=== PATIENT | male | born 1980 | race Two or more races ===

== ENCOUNTER 2021-01-28 11:58 | Emergency (ER) | payer OTHER, MEDICAID, SELFPAY ==
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
--- NOTE | ~2021-01-28 | CT_ITS ---
EXAMINATION: CT ANGIOGRAM NECK WITH CONTRAST CT ANGIOGRAM BRAIN WITH CONTRAST CLINICAL INFORMATION: Neck swelling and pain. Rule out left carotid dissection. COMPARISON: None. TECHNIQUE: Test bolus sequences followed by intravenous administration 70 mL of Omnipaque 350. Helical imaging was performed in the axial plane from the thoracic inlet to the skull vertex. Delayed postcontrast imaging of the head was also performed. The data was processed at the electromechanical technologist workstation for generation of MIP sequences. Angled MIPs and volume rendered reformatted images were also generated at an offline 3D workstation under concurrent supervision. Stenoses are assessed in accordance with NASCET criteria unless otherwise indicated. This CT examination was performed using dose optimization techniques as appropriate, variously including the following: *Automated exposure control *Adjustment of mA and/or kV according to patient size (this includes techniques or standardized protocols for targeted exams where dose is matched to indication/reason for exam; i.e. extremities or head) *Use of iterative reconstruction technique FINDINGS: BRAIN: [There is no intracranial hemorrhage, hydrocephalus, extra-axial surface collection, midline shift, or other herniation pattern. Villasenor to white matter differentiation is diffusely maintained without evidence of an evolved acute territorial infarct. The basilar cisterns are preserved. No significant soft tissue abnormality. No acute osseous abnormality. The paranasal sinuses and the mastoid air cells are well aerated.] CERVICAL SOFT TISSUES AND LUNG APICES: Imaged upper lungs are clear. Nonpathologic size criteria lymph nodes within the right and left neck. NECK CTA: [There is a classic 3 vessel configuration of the aortic arch. Proximal arch vessels are non-stenotic. The vertebral arteries are codominant. No significant ostial stenosis is visualized on either side. Both vertebral arteries are widely patent throughout their extracranial cervical course. Both common carotid arteries are normal in caliber. Patulous carotid bulbs bilaterally. There is mild beaded irregularity of the mid to distal right cervical ICA that could reflect underlying fibromuscular dysplasia. There is no evidence of acute arterial dissection. BRAIN CTA: [There is normal opacification of major intracranial arteries. There are -type engineering project manager bilaterally. No focal flow-limiting stenosis nor discrete proximal large artery occlusion. No aneurysm. Timing of the contrast bolus allows assessment of the major dural venous sinuses, which all opacify normally] CT/CT angio head neck IMPRESSION: - No acute intracranial findings. - Patulous carotid bulbs bilaterally. There is mild beaded irregularity of the mid to distal right cervical ICA that could reflect underlying fibromuscular dysplasia. There is no evidence of acute arterial dissection.
[2021-01-28 12:05] VITALS: BP 155/98; PULSE 73; RESP 16; O2SAT 97; BMI 24.7
[2021-01-28 12:08] VITALS: TEMP 36.9
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
[2021-01-28 15:33] VITALS: BP 120/76; PULSE 56; RESP 16; TEMP 36.6; O2SAT 98
[2021-01-28 17:15] LABS: MANUAL DIFF FLAG NO
[2021-01-28 17:16] LABS: Basophils Percent Auto 0.2 % (0-2); Eosinophils Absolute Auto 0.1 X10*3/uL (0.0-0.4); Hematocrit 42.9 % (42-52); Hemoglobin 13.6 g/dl (14.0-18.0); Imm Gran Abs Auto 0.01 X10*3/uL (0.00-0.03); Imm Gran Pct Auto 0.2 % (0.0-0.4); Lymphocytes Percent Auto 42.1 % (20-40); Mean Corpuscular HGB Conc 31.7 g/dl (31.0-36.0); Mean Corpuscular Hemoglobin 24.3 pg (27.0-33.0); Mean Corpuscular Volume 76.7 fL (80-98); Mean Platelet Volume 9.4 fL (9.4-12.4); Monocytes Absolute Auto 0.5 X10*3/uL (0.1-1.2); Monocytes Percent Auto 9.5 % (2-11); Neutrophils Absolute Auto 2.3 X10*3/uL (2.0-8.3); Platelet Count 228 X10*3/uL (160-400); Red Blood Count 5.59 X10*6/uL (4.60-5.80); Red Cell Distribution Width 14.4 % (11.0-16.0); White Blood Count 4.8 X10*3/uL (4.8-10.8)
[2021-01-28 17:41] LABS: Anion Gap 12 (12-20); Blood Urea Nitrogen 18 mg/dL (9-16); Carbon Dioxide 29 mmol/L (22-29); Chloride 102 mmol/L (96-108); Estimated Glomerular Filt Rate > 60; Glucose Random 90 mg/dL (60-115); Potassium 4.4 mmol/L (3.3-5.1); Sodium 139 mmol/L (135-145)
[2021-01-28] MEDS: iohexoL 350 MG/ML 100 ML INFUS..BTL IV (18:26)
== END 2021-01-28 19:22 | disposition home or self-care (01) ==
PROVIDERS: Nurse Practitioner Family; Emergency Provider Emergency Medicine Emergency Medical Services
DX: S16.1XXA Strain of muscle, fascia and tendon at neck level, initial encounter (principal); M54.5 Low back pain; M54.2 Cervicalgia; G44.309 Post-traumatic headache, unspecified, not intractable; V89.2XXA Person injured in unspecified motor-vehicle accident, traffic, initial encounter; Y93.9 Activity, unspecified; Y92.410 Unspecified street and highway as the place of occurrence of the external cause; Y99.9 Unspecified external cause status; Z79.899 Other long term (current) drug therapy
CPT/HCPCS: 36415; 70496; 70498; 72040; 72100; 80048; 85025; 96360; 99284; Q9967

== ENCOUNTER 2021-06-29 18:51 | Emergency (ER) | payer OTHER, SELFPAY ==
--- NOTE | ~2021-06-29 | CT_ITS ---
EXAMINATION: CT HEAD WITHOUT CONTRAST CLINICAL INFORMATION: Headache and blurry vision. COMPARISON: None TECHNIQUE: Contiguous axial imaging was performed from the skull base to vertex without intravenous administration of contrast. This CT examination was performed using dose optimization techniques as appropriate, variously including the following: *Automated exposure control *Adjustment of mA and/or kV according to patient size (this includes techniques or standardized protocols for targeted exams where dose is matched to indication/reason for exam; i.e. extremities or head) *Use of iterative reconstruction technique DLP: 648 mGy-cm FINDINGS: There is no evidence of acute intracranial hemorrhage or territorial infarction. No abnormal mass effect or midline shift is seen. Villasenor to white matter differentiation is well preserved. No extra-axial fluid collections are identified. The ventricles are normal in size. There is no abnormal attenuation within the brain parenchyma. The osseous structures and soft tissues are normal. The mastoid air cells and visualized portions of the paranasal sinuses are well aerated. CT/CT head/brain wo con IMPRESSION: No acute intracranial process
--- NOTE | ~2021-06-29 | XR_ITS ---
EXAMINATION: XR CHEST CLINICAL INFORMATION: SOB. COMPARISON: None TECHNIQUE: Frontal view of the chest was obtained. FINDINGS: No significant abnormality is noted involving the heart, lungs, mediastinum, bony thorax or soft tissues. XR/XR chest 1V IMPRESSION: Unremarkable chest exam.
[2021-06-29 20:41] VITALS: BP 153/87; PULSE 70; RESP 18; TEMP 36.4; O2SAT 100; BMI 25.4
[2021-06-29 21:14] VITALS: BP 136/99; PULSE 61; RESP 18; TEMP 36.9; O2SAT 99
[2021-06-29 21:16] LABS: Basophils Percent Auto 0.3 % (0-2); Eosinophils Absolute Auto 0.1 X10*3/uL (0.0-0.4); Eosinophils Percent Auto 0.9 % (0-4); Hematocrit 42.6 % (42-52); Hemoglobin 13.4 g/dl (14.0-18.0); Imm Gran Abs Auto 0.01 X10*3/uL (0.00-0.03); Imm Gran Pct Auto 0.1 % (0.0-0.4); Lymphocytes Absolute Auto 2.9 X10*3/uL (1.2-4.9); Lymphocytes Percent Auto 41.4 % (20-40); MANUAL DIFF FLAG NO; Mean Corpuscular HGB Conc 31.5 g/dl (31.0-36.0); Mean Corpuscular Hemoglobin 24.3 pg (27.0-33.0); Mean Corpuscular Volume 77.2 fL (80-98); Mean Platelet Volume 9.4 fL (9.4-12.4); Monocytes Absolute Auto 0.8 X10*3/uL (0.1-1.2); Monocytes Percent Auto 10.8 % (2-11); Neutrophils Absolute Auto 3.2 X10*3/uL (2.0-8.3); Neutrophils Percent Auto 46.5 % (45-73); Platelet Count 236 X10*3/uL (160-400); Red Blood Count 5.52 X10*6/uL (4.60-5.80); White Blood Count 6.9 X10*3/uL (4.8-10.8)
[2021-06-29 21:21] LABS: Glucose, Whole Blood 116 mg/dL (60-115)
[2021-06-29 21:35] LABS: Anion Gap 11 (12-20); Blood Urea Nitrogen 16 mg/dL (9-16); Calcium 9.6 mg/dL (8.4-10.2); Carbon Dioxide 32 mmol/L (22-29); Chloride 105 mmol/L (96-108); Creatinine Clr Calc Pharmacy 65.2; Estimated Glomerular Filt Rate > 60; Glucose Random 103 mg/dL (60-115); Potassium 4.7 mmol/L (3.3-5.1); Sodium 143 mmol/L (135-145)
--- NOTE | 2021-06-29 22:03 | ED_ITS ---
HPI - General Adult General Chief complaint: General Medical Stated complaint: SOB Headache Time Seen by Provider: 06/29/21 21:30 Source: patient Mode of arrival: ambulatory Limitations: no limitations History of Present Illness HPI narrative: 40 y/o male presenting to the ER with two days of headaches, mild SOB and shakiness. He reports yesterday when he was watching videos on his phone he had blurry vision for about 5 minutes and it self resolved. He admits to straining his eyes frequently and often has to close one eye to focus. He has not been to an eye doctor in years. 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 He has no chest pain or fevers. No SOB at home. He also reports generalized frontal headaches, worse after being on his phone for a long time. MD complaint: headache, SOB Onset (ago): day(s) Location: head Radiation: non-radiation Severity: mild Severity scale (1-10): 1 Quality: burning and aching Pain Consistency: intermittent and now resolved Relieving factors: none Exacerbating factors: none Associated symptoms: denies other symptoms Treatments prior to arrival: none Related Data Previous Rx's Medication Instructions Recorded cyclobenzaprine 10 mg tablet 10 mg PO TID PRN #14 tab 01/28/21 naproxen 500 mg tablet 500 mg PO BID PRN #20 tab 01/28/21 ibuprofen 600 mg tablet 600 mg PO Q8H PRN #20 tab 06/29/21 Allergies Allergy/AdvReac Type Severity Reaction Status Date / Time No Known Allergies Allergy Verified 06/29/21 20:41 Review of Systems Review of Systems: Constitutional: No Fever, No Chills ENT/Mouth: No sore throat, No Rhinorrhea, No Swallowing Difficulty Eyes: No Eye Pain, No Swelling, No Redness, +blurry vision Cardiovascular: No Chest Pain, + SOB, No Orthopnea, No Edema Respiratory: No Cough, No Sputum, No Wheezing, No dyspnea Gastrointestinal: No Nausea, No Vomiting, No Diarrhea, No abdominal Pain Genitourinary: No Dysuria, No Urinary Frequency, No Hematuria Musculoskeletal: No joint pain, No Myalgias Skin: No Skin Lesions, No rash Neuro: No Weakness, No Numbness, No Dizziness, + Headache Psych: No Anxiety/Panic, No Depression Heme/Lymph: No Bruising, No Lymphadenopathy PMFSH Past Medical History Medical History (Updated 06/29/21 @ 23:38 by NED Prado) Bipolar 1 disorder Herniated disc Pre-diabetes Social History Social History Advance Directives: No Advance Directives Information Provided: No Physical Exam Vital Signs: Vital Signs: Last Vital Signs Temp 98.4 F 06/29/21 21:14 Pulse 61 06/29/21 21:14 Resp 18 06/29/21 21:14 BP 136/99 H 06/29/21 21:14 Pulse Ox 99 06/29/21 21:14 Body Mass Index 25.4 Appearance: Alert. Oriented X3. No acute distress. Eyes: Pupils equal, round and reactive to light. EOMI, no nystagmus ENT: Pharynx normal. Poor dentition Neck: Normal inspection. Neck supple. CVS: Normal heart rate and rhythm. Pulses normal. Respiratory: No respiratory distress. Breath sounds normal. Abdomen: Soft and nontender. +BS x4 Skin: Skin warm and dry. Normal skin color. Normal skin turgor. No rashes. Extremities: No lower extremity edema. Neuro: Oriented X 3. No motor deficit. No sensory deficit. Steady gait. No temporal tenderness Course Course Course Narrative: 40 y/o male presenting with headaches, SOB, s/p blurry vision for 5 minutes yesterday. He appears well, exam is nonfocal. Lab workup is normal. CXR clear. COVID negative. CT head is unremarkable. He currently has no symptoms. His headaches could be due to straining of his eyes. SOB related to dust inhalation. Counseled to f/u with eye doc and PCP. He has an appointment next week with a new PCP. He is stable for discharge home with outpatient follow up. Medical Decision Making Lab Data Result diagrams: 06/29/21 21:11 06/29/21 21:11 Labs: Lab Results 06/29/21 06/29/21 06/29/21 Range/Units 21:11 21:11 21:11 WBC 6.9 (4.8-10.8) X10*3/uL RBC 5.52 (4.60-5.80) X10*6/uL Hgb 13.4 L (14.0-18.0) g/dl Hct 42.6 (42-52) % MCV 77.2 L (80-98) fL MCH 24.3 L (27.0-33.0) pg MCHC 31.5 (31.0-36.0) g/dl RDW 15.0 (11.0-16.0) % Plt Count 236 (160-400) X10*3/uL MPV 9.4 (9.4-12.4) fL Immature Gran % (Auto) 0.1 (0.0-0.4) % Neut % (Auto) 46.5 (45-73) % Lymph % (Auto) 41.4 H (20-40) % [place] % (Auto) 10.8 (2-11) % Eos % (Auto) 0.9 (0-4) % Baso % (Auto) 0.3 (0-2) % Lymph # (Auto) 2.9 (1.2-4.9) X10*3/uL [place] # (Auto) 0.8 (0.1-1.2) X10*3/uL Eos # (Auto) 0.1 (0.0-0.4) X10*3/uL Baso # (Auto) 0.0 (0.0-0.2) X10*3/uL Abs Immat Gran (auto) 0.01 (0.00-0.03) X10*3/uL Absolute Neuts (auto) 3.2 (2.0-8.3) X10*3/uL Absolute Nucleated RBC 0.000 (0.0-0.012) X10*3/uL Nucleated RBC % (auto) 0.0 (0.0-0.2) /100WBC Sodium 143 (135-145) mmol/L Potassium 4.7 (3.3-5.1) mmol/L Chloride 105 (96-108) mmol/L Carbon Dioxide 32 H (22-29) mmol/L Anion Gap 11 L (12-20) BUN 16 (9-16) mg/dL Creatinine 1.15 (0.5-1.4) mg/dL Estim Creat Clear Calc 65.2 Estimated GFR > 60 POC Glucose (60-115) mg/dL Random Glucose 103 (60-115) mg/dL Calcium 9.6 D (8.4-10.2) mg/dL COVID-19 (GAGAN) Negative (Negative) COVID-19 Clin Com See Note 06/29/21 Range/Units 21:17 WBC (4.8-10.8) X10*3/uL RBC (4.60-5.80) X10*6/uL Hgb (14.0-18.0) g/dl Hct (42-52) % MCV (80-98) fL MCH (27.0-33.0) pg MCHC (31.0-36.0) g/dl RDW (11.0-16.0) % Plt Count (160-400) X10*3/uL MPV (9.4-12.4) fL Immature Gran % (Auto) (0.0-0.4) % Neut % (Auto) (45-73) % Lymph % (Auto) (20-40) % [place] % (Auto) (2-11) % Eos % (Auto) (0-4) % Baso % (Auto) (0-2) % Lymph # (Auto) (1.2-4.9) X10*3/uL [place] # (Auto) (0.1-1.2) X10*3/uL Eos # (Auto) (0.0-0.4) X10*3/uL Baso # (Auto) (0.0-0.2) X10*3/uL Abs Immat Gran (auto) (0.00-0.03) X10*3/uL Absolute Neuts (auto) (2.0-8.3) X10*3/uL Absolute Nucleated RBC (0.0-0.012) X10*3/uL Nucleated RBC % (auto) (0.0-0.2) /100WBC Sodium (135-145) mmol/L Potassium (3.3-5.1) mmol/L Chloride (96-108) mmol/L Carbon Dioxide (22-29) mmol/L Anion Gap (12-20) BUN (9-16) mg/dL Creatinine (0.5-1.4) mg/dL Estim Creat Clear Calc Estimated GFR POC Glucose 116 H (60-115) mg/dL Random Glucose (60-115) mg/dL Calcium (8.4-10.2) mg/dL COVID-19 (GAGAN) (Negative) COVID-19 Clin Com Critical Care Time Critical Care Time Critical Care Time: No Discharge Plan Discharge Clinical Impression: Headache Qualifiers: Headache type: unspecified Headache chronicity pattern: episodic headache Intractability: not intractable Qualified Code(s): R51.9 - Headache, unspecified Patient Disposition: Home, Self-Care Instructions: Acute Headache (ED) Additional Instructions: Your workup today was unremarkable. Recommend rest. Avoid excessive screen time. Recommend following up with an eye doctor, your headaches may be related to straining your eyes. Follow up with your doctor in the next 1 week. Prescriptions: New ibuprofen 600 mg tablet 600 mg PO Q8H PRN (Reason: pain) Qty: 20 RF: 0 No Action naproxen 500 mg tablet 500 mg PO BID PRN (Reason: pain) Qty: 20 RF: 0 cyclobenzaprine 10 mg tablet 10 mg PO TID PRN (Reason: muscle spasm) Qty: 14 RF: 0 Referrals: Jim Liu [Physician] - 2 days Interventions: ED Discharge Assessment Last Done: 06/30/21 00:00 Discharge Date/Time: 06/30/21 00:01
[2021-06-29 23:02] LABS: COVID-19 Test Negative (Negative)
== END 2021-06-30 00:01 | disposition home or self-care (01) ==
PROVIDERS: Emergency Provider Internal Medicine
DX: R06.02 Shortness of breath (principal); R51.9 Headache, unspecified; Z20.822 Contact with and (suspected) exposure to COVID-19; Z79.899 Other long term (current) drug therapy
CPT/HCPCS: 36415; 70450; 71045; 80048; 82947; 85025; 87635; 99284

== ENCOUNTER 2024-12-05 09:42 | Outpatient (REF) | payer OTHER, SELFPAY ==
--- OUTSIDE RECORDS SUMMARY | 2024-12-05 10:16 | XMS_ITS | Encounter Summary ---
Author Organization [employer] Address [address] [place] [address] [address] [place] [address] Care Team Providers Care Air Crew Supervisor Name Role Phone Daniella Robledo MD Primary Care Provider [phone] Encounter Details Date Type Department Care Team (Latest Contact Info) Description 12/03/2024 Travel Social History Tobacco Use Types Packs/Day Years Used Date Smoking Tobacco: Never Assessed Sex and Gender Information Value Date Recorded Sex Assigned at Male 08/14/2022 10:39 AM EDT Legal Sex Male 10:39 AM EDT Gender Identity Male 08/14/2022 10:39 AM EDT Sexual Orientation Straight 08/14/2022 10 :39 AM EDT documented as of this encounter Plan of Treatment Upcoming Encounters Date Type Department Care Team ( st Contact Info) Description 02/03/2025 11:30 AM EDT Office Visit [facility] [address] [place] [address] Daniella Robledo MD [address] [place] [address] documented as of this encounter Visit Diagnoses Not on filedocumented in this encounter Care Teams Air Crew Supervisor Relationship Specialty Start Date End Date Daniella Robledo MD [address] [place] [address] PCP - General Family Medicine 02/07/22 documented as of this encounter
--- OUTSIDE RECORDS SUMMARY | 2024-12-05 10:16 | XMS_ITS | Clinical Summary ---
Author Organization [employer] Address [address] [place] [address] [address] [place] [address] Care Team Providers Care Heavy Equipment Rental Manager Name Role Phone Daniella Robledo MD Primary Care Provider [phone] Allergies No known active allergies Medications * This document contains information received from the source organization and may not represent a complete record from that organization. gabapentin (Neurontin) 100 MG capsule TAKE 1 CAPSULE BY MOUTH TWICE DAILY EVERY EVENING 2 12/03/19 25 Discontinu ed(Therapy completed) FLUoxetine (PROzac) 20 MG capsule Take 1 capsule by mouth at bed time. 2 12/03/19 25 Discontinu ed(Ineffec tive) famotidine (Pepcid) 20 MG tablet Take 1 tablet by mouth. 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 Date Type Department Care Team Description 12/03/2024 9:15 AM EST Office Visit [facility] [address] [place] [address] Daniella Robledo MD Screening for colon cancer (Primary Dx); Chronic hepatitis C without hepatic coma (CMS/HCC); Prediabetes; Colon cancer screening; Dietary counseling; Exercise counseling; Methadone dependence (CMS/HCC) 12/03/2024 Travel 11/20/2024 Patient Outreach [facility] [address] [place] [address] Daniella Robledo MD Pre-visit Planning (Pre visit planning LVM ) 11/11/2024 Travel from Last 3 Months Social History Tobacco Use Types Packs/Day Years Used Date Smoking Tobacco: Never Assessed Sex and Gender Information Value Date Recorded Sex Assigned at Male 08/14/2022 10:39 AM EDT Legal Sex Male 10:39 AM EDT Gender Identity Male 08/14/2022 10:39 AM EDT Sexual Orientation Straight 08/14/2022 10 :39 AM EDT Last Filed Vital Signs Vital Sign Reading Time Taken Comments Blood Pressure 130/80 12/03/2024 9:34 AM EST Pulse 86 12/03/2024 9:13 AM EST Temperature 36.6 ??C (97.8 ??F) 12/03/2024 9:13 AM ES T Respiratory Rate 16 12/03/2024 9:13 AM EST Oxygen Saturation 97% 12/03/2024 9:13 AM EST Inhaled Oxygen Concentration - - Weight 73 kg (161 lb) 12/03/2024 9:13 AM EST Height 158.8 cm (5' 2.5 ) 12/03/2024 9:13 AM EST Body Mass Index 28.98 12/03/2024 9:13 AM EST Plan of Treatment Upcoming Encounters Date Type Department Care Team ([facility] st Contact Info) Description 02/03/2025 11:30 AM EDT Office Visit [facility] [address] [place] [address] Daniella Robldeo MD [address] [place] [address] Health Maintenance Due Date Last Done Comments CT Colonography 1979 Colonoscopy 1979 Colorectal Cancer Screening 1979 Depression Screening 1979 FIT DNA/Cologuard 1979 FIT 1979 FOBT 1979 SDOH Screening 1979 Sigmoidoscopy 1979 Alcohol/Substance Use Screening 1991 Tobacco Screening 1991 Family Planning (PISQ) 1994 Hepatitis A Vaccines (1 of 2 - Risk 2-dose series) 1998 Hepatitis B Vaccines (1 of 3 - 19+ 3-dose series) 1998 Pneumococcal Vaccine: Pediatrics (0 to 5 Years) and At-Risk Patients (6 to 49) Years) (1 of 2 - PCV) 1998 Diabetes: Hemoglobin A1C 08/11/2023 08/11/2022 COVID-19 Vaccine (1 - 2023-2 5 season) 2024 Influenza Vaccine (#1) 2024 Lipid Panel 11/30/2026 11/30/2021 Zoster Vaccines (1 of 2) 2029 DTaP/Tdap/Td Vaccines (2 - T d or Tdap) 03/28/2032 03/28/2022 RSV Patients and Patients Aged 60 years or older (1 - 1-dose 75+ series) 2054 HIV Screening Completed 04/07/2022, 11/30/2021, 12/23/2019 HIB Vaccines Aged Out No longer eligi ble based on patient's age to complete this topic HPV Vaccines Aged Out No longer eligi ble based on patient's age to complete this topic IPV Vaccines Aged Out No longer eligi ble based on patient's age to complete this topic Meningococcal Vaccine Aged Out No jimenez esteban eligible based on patient's age to complete this topic RSV under 20 months Aged Out No longe r eligible based on patient's age to complete this topic Rotavirus Vaccines Aged Out No longer eligible based on patient's age to complete this topic Procedures Procedure Name Priority Date/Time Associated Diagnosis Comments HEMOGLOBIN A1C Routine 08/11/2022 9:01 AM EDT ZZZ HISTORICAL HIV 1 GENOTYPE Routine 04/07/2022 9:42 AM EDT LIPID PANEL, STANDARD Routine 11/30/2021 9:18 AM EST from Last 3 Months or Most Recently Relevant to Health Maintenance Results * (ABNORMAL) HEMOGLOBIN A1c (08/11/2022 9:01 AM EDT) Hemoglobin A1c 5.7(H) <5.7 % of total Hgb [facility] Comment: For someone without known diabetes, a hemoglobin ?? A1c value between 5.7% and 6.4% is consistent with prediabetes and should be confirmed with a ?? follow-up test. ?? For someone with known diabetes, a value <7% indicates that their diabetes is well controlled. A1c targets should be individualized based on duration of diabetes, age, comorbid conditions, and other considerations. ?? This assay result is consistent with an increased risk of diabetes. ?? Currently, no consensus exists regarding use of hemoglobin A1c for diagnosis of diabetes for children. ?? 08/11/2022 9:01 AM EDT us Daniella Robledo MD LAB BLOOD ORDERABLES Final Re sult [facility] * HIV 1 GENOTYPE (04/07/2022 9:42 AM EDT) [facility] HIV 1 GENOTYPE NOT DETECTED [facility] Comment: We are unable to obtain a Genotype from this sample. The most common reasons for failure to genotype are insufficient viral load, mutations in the viral genome at the assay priming sites, and presence of inhibitory substance in the sample. Please correlate this result with any recent viral load for this patient and resubmit if clinically warranted. A minimum viral load of 400 copies/mL is required for testing. HIV Subtype: NOT DETERMINED Antiretroviral drugs ?Resistance ??Mutations Detected ? Predicted ? ! ?? ! ? NRTIs ? ! ?? ! ZDV (zidovudine or Retrovir) ?!N/A! ABC (abacavir or Ziagen) ?!N/A! ddI (didanosine or Videx) ? !N/A! 3TC (lamivudine or Epivir) ?!N/A! FTC (emtricitabine or Emtriva) ??!N/A! d4T (stavudine or Zerit) ?!N/A! TDF (tenofovir or Viread) ? !N/A! !___! ? ! ?? ! ? NNRTIs ?! ?? ! ETR (etravirine or Intelence) ?? !N/A! EFV (efavirenz or Sustiva) ?!N/A! NVP (nevirapine or Viramune) ?!N/A! RPV (rilpivirine or Edurant) ?!N/A! CAL (doravirine or Pifeltro) ?!N/A! !___! ? ! ?? ! ? PIs ? ! ?? ! FPV (fos-amprenavir or Lexiva) ??!N/A! IDV (indinavir or Crixivan) ? !N/A! NFV (nelfinavir or Viracept) ?!N/A! SQV (saquinavir or Invirase) ?!N/A! LPV (lopinavir or Kaletra) ?!N/A! ATV (atazanavir or Reyataz) ? !N/A! TPV (tipranavir or Aptivus) ? !N/A! DRV (darunavir or Prezista) ? !N/A! ? ! ?? ! !___! PRB = PROBABLE OR EMERGING RESISTANCE OTHER MUTATIONS DETECTED: RT GENE MUTATIONS: N/A IA GENE MUTATIONS: N/A [facility] Oct 2018 Interpretation Algorithm The method used in this test is RT-PCR and sequencing ?? of the HIV-1 polymerase gene. ?? The phrases resistance predicted and probable ?? or emerging resistance refer to the application of ?? the interpretive rules. The FDA has not reviewed all of the interpretive rules used by the laboratory ?? to predict drug resistance. FDA may not currently ?? recognize some of the HIV gene mutations reported as ?? predictive of drug resistance, but the laboratory ?? considers these mutations to be associated with ?? resistance to anti-viral drugs based on current ?? clinical or scientific studies. The test has been ?? validated pursuant to CLIA regulations and is not ?? considered investigational or for research use only. Treatment decisions should be made in consideration of ?? all relevant clinical and laboratory findings and the prescribing information for the drugs. ?? This test was developed and its analytical performance characteristics have been determined by [employer]. It has not been cleared or approved by FDA. This assay has been validated pursuant to the CLIA regulations and is used for clinical purposes. ?? 04/07/2022 9:42 AM EDT us Daniella Robledo MD HISTORICAL/NON ORDERABLE LABS Final Result [facility] [address] * (ABNORMAL) LIPID PANEL, STANDARD (11/30/2021 9:18 AM EST) Chol/HDLC Ratio 5.4(H) <5.0 (calc) [facility] Cholesterol, Total 209(H) <200 mg/dL [facility] HDL Cholesterol 39(L) > OR = 40 mg/dL [facility] LDL Cholesterol 145(H) mg/dL (calc) [facility] Comment: Reference range: <100 ?? Desirable range <100 mg/dL for primary prevention; ?? <70 mg/dL for patients with CHD or diabetic patients ?? with > or = 2 CHD risk factors. ?? LDL-C is now calculated using the Joann ?? calculation, which is a validated novel method providing ?? better accuracy than the Friedewald equation in the ?? estimation of LDL-C. ?? Nahid SAN et al. KI. 2013;310(19): 5342-6866 ?? (http://education.[employer]ie/faq/LWJ333) Non-HDL Cholesterol 170(H) <130 mg/dL (calc) [facility] Comment: For patients with diabetes plus 1 major ASCVD risk ?? factor, treating to a non-HDL-C goal of <100 mg/dL ?? (LDL-C of <70 mg/dL) is considered a therapeutic ?? option. Triglycerides 130 <150 mg/dL [facility] 11/30/2021 9:18 AM EST us Daniella Robledo MD LAB BLOOD ORDERABLES Final Re sult [facility] [address] [place] [address], from Last 3 Months or Most Recently Relevant to Health Maintenance Insurance [place], [place] [facility] * Guarantor: Jacky Chester Account Type Relation to Patient Date of Phone Billing Address Personal/Family Self [place], [place] Care Teams Heavy Equipment Rental Manager Relationship Specialty Start Date End Date Daniella Robledo MD [address] [place] [address] PCP - General Family Medicine 02/07/22
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
--- OUTSIDE RECORDS SUMMARY | 2024-12-05 10:16 | XMS_ITS | Encounter Summary ---
Author Organization [employer] Address [address] [facility] 7 [place] [address] Care Team Providers Care Ice Handler Name Role Phone Daniella Robledo MD Primary Care Provider [phone] Reason for Visit * Reason Comments Pre-visit Planning Pre visit planning L VM Encounter Details Date Type Department Care Team ([facility] Contact Info) Description 11/20/2024 Patient Outreach [facility] [address] [place] [address] Daniella Robledo MD [address] [place] [address] Pre-visit Planning (Pre visit planning LVM ) Social History Tobacco Use Types Packs/Day Years Used Date Smoking Tobacco: Never Assessed Sex and Gender Information Value Date Recorded Sex Assigned at Male 08/14/2022 10:39 AM EDT Legal Sex Male 10:39 AM EDT Gender Identity Male 08/14/2022 10:39 AM EDT Sexual Orientation Straight 08/14/2022 10 :39 AM EDT documented as of this encounter Progress Notes * Lencho Peace - 11/20/2024 11:16 AM EST LUIS Meier placed outbound call to patient to complete pre-visit planning. No answer at this time.Patient name and were not confirmed. CC left voicemail requesting return call. Direct contact information provided. documented in this encounter Plan of Treatment Upcoming Encounters Date Type Department Care Team (Late Contact Info) Description 02/03/2025 11:30 AM EDT Office Visit [facility] [address] [place] [address] Daniella Robledo MD [address] [place] [address] documented as of this encounter Visit Diagnoses Not on filedocumented in this encounter Care Teams Ice Handler Relationship Specialty Start Date End Date Daniella Robledo MD [address] [place] [address] PCP - General Family Medicine 02/07/22 documented as of this encounter
--- OUTSIDE RECORDS SUMMARY | 2024-12-05 10:16 | XMS_ITS | Encounter Summary ---
Author Organization [employer] Address [address] [place] [address] [facility] [place] [address] Care Team Providers Care Reinforcing Steel Erector Name Role Phone Daniella Robledo MD Primary Care Provider [phone] Reason for Referral * Consultation (Routine) - Closed Specialty Diagnoses / Procedures Referred By Fara hoover Referred To Contact Behavioral Health Diagnoses Methadone dependence (CMS/HCC) Daniella Robledo MD [address] [place] [address] Phone: tel: fax: Referral ID Status Reason Start Date Expiration Date V isits Requested Visits Authorized [id number] Closed Specialty Services Required 12/03/2024 12/03/2025 1 1 * Consultation (Routine) - Authorized Specialty Diagnoses / Procedures Referred By Fara hoover Referred To Contact Dentist / Dentistry Diagnoses Prediabetes Daniella Robledo MD [address] [place] [address] Phone: tel: fax: [facility] [address] [place] [address] Phone: tel: fax: Referral ID Status Reason Start Date Expiration Date Visits Requested Visits Authorized [id number] Authorized Consult and Treat 12/03/2024 12/03/2025 1 1 Reason for Visit * Reason Comments Follow-up Chronic conditions Encounter Details Date Type Department Care Team ([facility] Contact Info) Description 12/03/2024 9:15 AM EST Office Visit [facility] [address] [place] [address] Daniella Robledo MD [address] [place] [address] Screening for colon cancer (Primary Dx); Chronic hepatitis C without hepatic coma (CMS/HCC); Prediabetes; Colon cancer screening; Dietary counseling; Exercise counseling; Methadone dependence (CMS/HCC) Social History Tobacco Use Types Packs/Day Years Used Date Smoking Tobacco: Never Assessed Sex and Gender Information Value Date Recorded Sex Assigned at Male 08/14/2022 10:39 AM EDT Legal Sex Male 10:39 AM EDT Gender Identity Male 08/14/2022 10:39 AM EDT Sexual Orientation Straight 08/14/2022 10 :39 AM EDT documented as of this encounter Last Filed Vital Signs Vital Sign Reading [...] Mass Index 28.98 12/03/2024 9:13 AM EST documented in this encounter Progress Notes * Daniella Robledo MD - 12/03/2024 9:15 AM EST Subjective Patient ID: Jacky Soto is a 44 y.o. male who presents for Follow- up (Chronic conditions ). Jacky is a 44-year-old male patient known to us but not seen since 2021 here for continuation of care. Patient is on 70 mg of methadone daily and doing well for the past 10 years without relapse. He was treated for hepatitis C at [facility] successfully about 3 years ago but has not beenrechecked for it in a while since he had not returned here until his made him this appointment. He feels overall well. He is on disability. He vapes nicotine. He denies alcohol use. He has gained some weight that he would like to lose. He does not have a therapist and has a history of depression. He dislikes antidepressants and does not want to be on any medication for this matter. He would like a referral for behavioral therapy only at this time. He lives with . No complaints today. He needs a dental appointment as he has not seen a dentist in over 10 years. He does have an eye examappointment coming up. He does not take any medications except for the methadone. He gets his methadone prescription every 2 weeks. Review of Systems Constitutional: Negative for activity change, chills, fever and unexpected weight change. Respiratory: Negative for cough, shortness of breath and wheezing. Cardiovascular: Negative for chest pain, palpitations and leg swelling. Gastrointestinal: Negative for abdominal pain and blood in stool. Endocrine: Negative for polydipsia and polyuria. Genitourinary: Negative for decreased urine volume, difficulty urinating, dysuria and hematuria. Musculoskeletal: Negative for arthralgias and gait problem. Skin: Negative for color change and rash. Neurological: Negative for dizziness and headaches. Hematological: Negative for adenopathy. Psychiatric/Behavioral: Negative for dysphoric mood, hallucinations, sleep disturbance and suicidalideas. The patient is not nervous/anxious. Objective BP 130/80 Pulse 86 Temp 97.8 ??F (36.6 ??C) (Oral) Resp 16 Ht 5' 2.5 (1.588 m) Wt 161 lb (73 kg) SpO2 97% BMI 28.98 kg/m?? Physical Exam Vitals reviewed. Constitutional: General: He is not in acute distress. Appearance: Normal appearance. HENT: Head: Normocephalic. Nose: Nose normal. Mouth/Throat: Mouth: Mucous membranes are moist. Dentition: Dental caries present. Pharynx: No oropharyngeal exudate. Eyes: Extraocular Movements: Extraocular movements intact. Pupils: Pupils are equal, round, and reactive to light. Cardiovascular: Rate and Rhythm: Normal rate and regular rhythm. Heart sounds: Normal heart sounds. No murmur heard. Pulmonary: Effort: Pulmonary effort is normal. No respiratory distress. Breath sounds: Normal breath sounds. Abdominal: General: There is no distension. Palpations: Abdomen is soft. Tenderness: There is no guarding. Musculoskeletal: Cervical back: Normal range of motion. Right lower leg: No edema. Left lower leg: No edema. Skin: Capillary Refill: Capillary refill takes less than 2 seconds. Neurological: Mental Status: He is oriented to person, place, and time. Mental status is at baseline. Psychiatric: Mood and Affect: Mood normal. Behavior: Behavior normal. Thought Content: Thought content normal. Judgment: Judgment normal. Assessment/Plan Diagnoses and all orders for this visit: Screening for colon cancer - Lipid Panel, Standard; Future - Hepatitis C Viral RNA, Quantitative, Real-Time PCR; Future - CBC auto differential; Future - TSH W/Reflex to FT4; Future - Hemoglobin A1c; Future - Cologuard?? colon cancer screening - Hepatic Function Panel; Future Chronic hepatitis C without hepatic coma (CMS/HCC) Comments: Recheck hep C viral load as well as fasting labs. Patient will return for results with me. Declinedflu vaccine today. Avoid alcohol.Avoid further weight gain. Orders: - Lipid Panel, Standard; Future - Hepatitis C Viral RNA, Quantitative, Real-Time PCR; Future - CBC auto differential; Future - TSH W/Reflex to FT4; Future - Hemoglobin A1c; Future - Cologuard?? colon cancer screening - Hepatic Function Panel; Future Prediabetes Dietary Recommendations: Fruits, vegetables, whole grains, protein foods, and fat-free or low-fat dairy products are healthychoices. Eat different types of protein foods in your diet. This can include seafood, lean meats, poultry, beans, peas, lentils, nuts, seeds, soy products, and eggs. Limit foods and beverages higher in added sugars, saturated fat, and sodium. Exercise Recommendations: At least 150 minutes of moderate-intensity physical activity per week, or an equivalent combinationof moderate- and vigorous-intensity activity Comments: Patient's last A1c was 5.7 years ago. Will recheck today as well as other fasting labs. Call with results if abnormal. Follow-up in 2 months with me given as Orders: - Lipid Panel, Standard; Future - Hepatitis C Viral RNA, Quantitative, Real-Time PCR; Future - CBC auto differential; Future - TSH W/Reflex to FT4; Future - Hemoglobin A1c; Future - Cologuard?? colon cancer screening - Hepatic Function Panel; Future - Urinalysis with reflex microscopic; Future - Referral to [facility]; Future Colon cancer screening Comments: Cologuard test ordered today. Patient thinks he had a colonoscopy done years ago. Orders: - Cologuard?? colon cancer screening Dietary counseling Exercise counseling Methadone dependence (CMS/HCC) Comments: Doing well on 70 mg daily of methadone. Gets prescription every 2 weeks. Behavioral health therapy referral done. Orders: - Referral to Behavioral Health; Future documented in this encounter Plan of Treatment Upcoming Encounters Date Type Department Care Team ([facility] Contact Info) Description 02/03/2025 11:30 AM EDT Office Visit [facility] [address] [place] [address] Daniella Robledo MD [address] [place] [address] Scheduled Orders Name Type Priority Associated Diagnoses Orde r Schedule Lipid Panel, Standard Lab Routine Screening for colon cancer Chronic hepatitis C without hepatic coma (CMS/HCC) Prediabetes Expected: 12/03/2024 (Approximate), Expires: 12/03/2025 Hepatitis C Viral RNA, Quantitative, Real-Time PCR Lab Routine Screening for colon cancer Chronic hepatitis C without hepatic coma (CMS/HCC) Prediabetes Expected: 12/03/2024 (Approximate), Expires: 12/03/2025 CBC auto differential Lab Routine Screening for colon cancer Chronic hepatitis C without hepatic coma (CMS/HCC) Prediabetes Expected: 12/03/2024 (Approximate), Expires: 12/03/2025 TSH W/Reflex to FT4 Lab Routine Screening for colon cancer Chronic hepatitis C without hepatic coma (CMS/HCC) Prediabetes Expected: 12/03/2024 (Approximate), Expires: 12/03/2025 Hemoglobin A1c Lab Routine Screening for colon cancer Chronic hepatitis C without hepatic coma (CMS/HCC) Prediabetes Expected: 12/03/2024 (Approximate), Expires: 12/03/2025 Cologuard?? colon cancer screening Lab Routine Screening for colon cancer Chronic hepatitis C without hepatic coma (CMS/HCC) Prediabetes Colon cancer screening Ordered: 12/03/2024 Hepatic Function Panel Lab Routine Screening for colon cancer Chronic hepatitis C without hepatic coma (CMS/HCC) Prediabetes Expected: 12/03/2024 (Approximate), Expires: 12/03/2025 Urinalysis with reflex microscopic Lab Routine Prediabetes Expected: 12/03/2024, Expires: 12/03/2025 Scheduled Referrals Name Type Priority Associated Diagnoses Order Schedule Referral to [facility] Out[facility] Referral Routine Prediabetes Expected: 12/03/2024 (Approximate), Expires: 12/03/2025 Referral to Behavioral Health Outpatient Referral Routine Methadone dependence (CMS/HCC) Expected: 12/03/2024 (Approximate), Expires: 12/03/2025 documented as of this encounter Visit Diagnoses Diagnosis Screening for colon cancer- Primary Special screening for malignant neoplasms, colon Chronic hepatitis C without hepatic coma (CMS/HCC) Prediabetes Other abnormal glucose Colon cancer screening Special screening for malignant neoplasms, colon Dietary counseling Dietary surveillance and counseling Exercise counseling Methadone dependence (CMS/HCC) Opioid type dependence, unspecified abuse documented in this encounter Care Teams Reinforcing Steel Erector Relationship Specialty Start Date End Date Daniella Robledo MD [address] [place] [address] PCP - General Family Medicine 02/07/22 documented as of this encounter
--- OUTSIDE RECORDS SUMMARY | 2024-12-05 10:16 | XMS_ITS | Encounter Summary ---
Author Organization [employer] Address [address] [facility] [address] [place] [address] Care Team Providers Care Court Officer Name Role Phone Daniella Robledo MD Primary Care Provider [phone] Encounter Details Date Type Department Care Team ([facility] Contact Info) Description 10/23/2022 Orders Only [facility] [address] [place] [address] Kymberly Nielson RN [address] [place] [address] Hep C w/o coma, chronic (CMS/HCC) Social History Tobacco Use Types Packs/Day [...] Upcoming Encounters Date Type Department Care Team ([facility] Contact Info) Description 02/03/2025 11:30 AM EDT Office Visit [facility] [address] [place], [place] [phone] Daniella Robledo MD [address] [place], [place] [id number] documented as of this encounter Procedures Procedure Name Priority Date/Time Associated Diagnosis Comments LIVER FIBROSIS, FIBROTEST ACTITEST PANEL Routine 10/25/2022 9:29 AM EST Hep C w/o coma, chronic (CMS/HCC) HEPATITIS C VIRAL RNA, QUANTITATIVE, REAL-TIME PCR Routine 10/25/2022 9:29 AM EST Hep C w/o coma, chronic (CMS/HCC) documented in this encounter Results * Liver Fibrosis, FibroTest-ActiTest Panel (10/25/2022 9:29 AM EST) Fibrosis Score 0.30 [facility], Fibrosis Stage F1 [facility], Fibrosis Interpretation SEE NOTE [facility], Comment: minimal fibrosis Fibro Test Score (f) ??Metavir Score ??f>=0 and f<=0.21 : F0 (no fibrosis) f>0.21 and f<=0.27 : F0-F1 (no fibrosis) f>0.27 and f<=0.31 : F1 (minimal fibrosis) f>0.31 and f<=0.48 : F1-F2 (minimal fibrosis) f>0.48 and f<=0.58 : F2 (moderate fibrosis) f>0.58 and f<=0.72 : F3 (advanced fibrosis) f>0.72 and f<=0.74 : F3-F4 (advanced fibrosis) f>0.74 and f<=1.00 : F4 (severe fibrosis) Necroinflammat Act Score 0.04 [facility], Necroinflammat Act Grade A0 [facility]/ [facility], Necroinflammat Interp SEE NOTE [facility], Comment: no activity ActiTest Score (a) ?Metavir Score ??a>=0 and a<=0.17 : A0 (no activity) a>0.17 and a<=0.29 : A0-A1 (no activity) a>0.29 and a<=0.36 : A1 (minimal activity) a>0.36 and a<=0.52 : A1-A2 (minimal activity) a>0.52 and a<=0.60 : A2 (significant activity) a>0.60 and a<=0.62 : A2-A3 (significant activity) a>0.62 and a<=1.00 : A3 (severe activity) Alpha 2 Macroglobulin 219 106 - 279 mg/dL [facility]/ [employer] [facility], Haptoglobin 182 43 - 212 mg/dL [facility]/ [facility], Apolipoprotein A1 128 94 - 176 mg/dL [facility]/ [facility], Total Bilirubin 1.2 0.2 - 1.2 mg/dL [facility]/ [facility], GGT 17 3 - 95 U/L [facility]/ [facility], ALT 13 9 - 46 U/L [facility]/ [facility], Reference ID [id number] [facility]/ [facility], Footnote SEE NOTE [facility]/ [facility], Comment: The reliability of results is dependent on compliance with the preanalytical and analytical conditions recommended by [employer]. The tests have to be deferred for: acute hemolysis, acute hepatitis, acute inflammation, extra hepatic cholestasis. The advice of a specialist should be sought for interpretation in chronic hemolysis and Gilbert's syndrome. The test interpretation is not validated in liver transplant patients. Isolated extreme values of one of the components should lead to caution in interpreting the results. In case of discordance between a biopsy result and a test, it is recommended to seek the advice of a specialist. The causes of these discordances could be due to a flaw of the test or to a flaw in the biopsy: i.e. a liver biopsy has a 33% variability rate for one fibrosis stage. FibroTest is interpretable for chronic hepatitis B and C, alcoholic and non alcoholic steatosis. ActiTest is interpretable for chronic hepatitis B and C. The performance characteristics have been determined by [facility]. It has not been cleared or approved by the U.S. Food and Drug Administration. Performance characteristics refer to the analytical performance of the test. The Daily Voice, the associated logo, [employer]ug[employer] and all associated [facility] corrales are the registered trademarks of [employer]. All third republican corrales - (R) and (TM) - are the property of their respective owners. (C) [id number] [employer]. All rights reserved. 10/25/2022 9:29 AM EST 10/25/2022 9:30 AM EST Marybeth Null MD LAB BLOOD ORDERABLES Final R esult Performing Organization Address [facility] Co de Phone Number [facility] [address], [facility] [place] [address] [facility], [address] [place] [phone] * Hepatitis C Viral RNA, Quantitative, Real-Time PC (10/25/2022 9:29 AM EST) [facility] HCV RNA, QN Real Time PCR <15 NOT DETECTED NOT DETECTED IU/mL [facility] HCV RNA QN Real Time PCR <1.18 NOT DETECTED NOT DETECTED Log IU/mL [facility] Comment: This test was performed using Real-Time Polymerase Chain Reaction. Reportable Range: 15 IU/mL to 100,000,000 IU/mL (1.18 Log IU/mL to 8.00 Log IU/mL). ?? The analytical performance characteristics of this assay have been determined by [employer]. The modifications have not been cleared or approved by the FDA. This assay has been validated pursuant to the CLIA regulations and is used for clinical purposes. ?? For more information on this test, go to: http://education.OneTwoSee.Edfolio/faq/TXR67y9 (This link is being provided for informational/ educational purposes only.) 10/25/2022 9:29 AM EST 10/25/2022 9:30 AM EST us Marybeth Null MD LAB BLOOD ORDERABLES Final R esult Performing Organization Address [facility] Co de Phone Number [facility] [address], [facility] [place] [address] [facility] [address], ([address]) [place] [address] documented in this encounter Visit Diagnoses Diagnosis Hep C w/o coma, chronic (CMS/HCC) Chronic hepatitis C without mention of hepatic coma documented in this encounter Care Teams Court Officer Relationship Specialty Start Date End Date Daniella oRbledo MD [address] [place] [address] PCP - General Family Medicine 02/07/22 documented as of this encounter
--- OUTSIDE RECORDS SUMMARY | 2024-12-05 10:16 | XMS_ITS | Clinical Summary ---
Author Organization [facility] Address [address] [place] [address] Care Team Providers Care State Historical Society Director Name Role Phone Unavailable Primary Care Provider Unavailabl e Social History Tobacco Use Types Packs/Day Years Used Date Smoking Tobacco: Never Assessed Sex and Gender Information Value Date Recorded Sex Assigned at Not on file Gender Identity Not on file Sexual Orientation Not on file Plan of Treatment Health Maintenance Due Date Last Done Comments Hepatitis C Virus Screening 1979 HIV Screening 1992 DTaP/Tdap/Td Vaccines (1 - Tdap) 1998 Hepatitis B Vaccines (1 of 3 - 19+ 3-dose series) 1998 COVID-19 Vaccine ( - 2023-2 5 season) 2024 HPV Vaccines Aged Out No longer eligi ble based on patient's age to complete this topic Pneumococcal Vaccine: Pediat janice (0-5 Years) and At-Risk Patients (6 to 49 Years) Aged Out No longer eligible b ased on patient's age to complete this topic
--- OUTSIDE RECORDS SUMMARY | 2024-12-05 10:16 | XMS_ITS ---
Author Organization [facility] Address [address] [place] [address] Care Team Providers Care Pulp Screen Operator Name Role Phone Neyda Emerson APRN Primary Care Provider [id number] Program Enrollment: Primary [facility] [place] Status:Enrolled (Active) Start date:12/23/2019 Enrollment date:09/03/2020 Case types:Program Enrollment Case Team Name Relationship Phone Neyda Emerson APRN (Responsible Staff) [phone] Continued Care and Services Coordination
--- OUTSIDE RECORDS SUMMARY | 2024-12-05 10:16 | XMS_ITS | Encounter Summary ---
Author Organization [employer] Address [address] [place] [address] 7 [place] [address] Care Team Providers Care Manager Process Name Role Phone Daniella Robledo MD Primary Care Provider [phone] Encounter Details Date Type Department Care Team (Latest Contact Info) Description 11/11/2024 Travel Social History Tobacco Use Types Packs/Day [...] Encounters Date Type Department Care Team (Late st Contact Info) Description 02/03/2025 11:30 AM EDT Office Visit [facility] MED & PEDS [address] [place] [address] Daniella Robledo MD [address] [place] [address] documented as of this encounter Visit Diagnoses Not on filedocumented in this encounter Care Teams Manager Process Relationship Specialty Start Date End Date Daniella Robledo MD [address] [place] [address] PCP - General Family Medicine 02/07/22 documented as of this encounter
--- OUTSIDE RECORDS SUMMARY | 2024-12-05 10:16 | XMS_ITS | Clinical Summary ---
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 01/23/2020 Opioid dependence in early, early partial, sustained full, or sustained partial remission 01/23/2020 Prediabetes 01/11/2020 Chronic hepatitis C without hepatic coma 020 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 Social History Tobacco Use Types Packs/Day Years Used Date Smoking Tobacco: Never Assessed Sex and Gender Information Value Date Recorded Sex Assigned at Male 04/25/2021 8:33 AM EDT Gender Identity Not on file Sexual Orientation Not on file Job Start Date Occupation Industry Not on file Not on file Not on file Plan of Treatment Health Maintenance Due Date Last Done Comments Hepatitis B Vaccines (1 of 3 - 3-dose series) 1979 COVID-19 Vaccine (#1) 04/04/1980 Pneumococcal Vaccine (1 of 2 - PCV) 1985 Depression Screening 1991 Preventative Health Evaluation 1997 DTap / Tdap / Td (1 - Tdap) 1998 Influenza Vaccine (#1) 2024 Colon Cancer Screening (Colonoscopy) 2024 RSV Ped < 20 months Aged Out No longe r eligible based on patient's age to complete this topic Care Teams Building Equipment Inspector Relationship Specialty Start Date End Date Neyda Emerson, CUTTER OUT PCP - General Nurse Practitioner 06/02/20
--- OUTSIDE RECORDS SUMMARY | 2024-12-05 10:16 | XMS_ITS | Clinical Summary ---
Author Organization [facility] Address [address] [place] [address] Care Team Providers Care Security Management Specialist Name Role Phone Neyda Emerson APRN Primary Care Provider [phone] Source Comments PLEASE NOTE, if this patient is a minor, it may be UNLAWFUL to discuss sensitive information that is contained in these records (such as FAMILY PLANNING, MENTAL HEALTH or SUBSTANCE ABUSE) with the minor patient's parent or other person without the patient's specific authorization.[facility] Allergies No known active allergies Medications methadone HCl (METHADONE ORAL)Indications:Ac kathy nonintractable headache, unspecified headache type,Hot flash in male Take 70 mg by mouth once daily Active om 3/E/linol/ala/oleic /gla/lip (OMEGA 3-6-9 ORAL) Take by mouth once daily Active B cmplx 4/vit D3/C/folic/zinc (VITAL-D RX ORAL) Take by mouth once daily Active ascorbic acid (FREDY-C ORAL) Take by mouth Active Active Problems Problem Noted Date Diagnosed Date Opioid dependence in early, early partial, sustained full, or sustained partial remission 01/23/2020 Bipolar disorder (HCC-CMS) 01/23/2020 Anemia 01/23/2020 Migraines 01/23/2020 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 01/23/2020 Night sweats 01/23/2020 Prediabetes 01/11/2020 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 Chronic hepatitis C without hepatic coma (HCC-CM S) 01/08/2020 Overview (07/26/2020): 07-22-2020 No show for [employer] Appt Family History Medical History Relation Name Comments Diabetes Daughter 1 No Known Problems Daughter 2 Heart Problems Father Seizures Mother No Known Problems Sister 1 No Known Problems Sister 2 No Known Problems Son Relation Name Status Comments Brother 1 Alive Brother 2 Alive Brother 3 Daughter 1 Alive Daughter 2 Alive Father Alive Mother Alive Sister 1 Alive Sister 2 Alive Son Alive Social History Tobacco Use Types Packs/Day Years Used Date Smoking Tobacco: Every Day Cigarettes Smokeless Tobacco: Never Alcohol Use Standard Drinks/Week Comments Not Currently 0 (1 standard drink = 0.6 oz pur e alcohol) socially Social Connections Answer Date Recorded Social Connections and Isolation 0 12/23/2019 Financial Resource Strain Answer Date R ecorded Financial Resource Strain 0 2019 Stress Answer Date Recorded Stress 0 12/23/2019 Physical Activity Answer Date Recorded Physical Activity 0 12/23/2019 Food Insecurity Answer Date Recorded Food 0 12/23/2019 Transportation Needs Answer Date Record ed Transportation 0 12/23/2019 Housing Stability Answer Date Recorded Housing 0 12/23/2019 Safety and Environment Answer Date Gurwinder rded Safety 0 12/23/2019 Utilities Answer Date Recorded Utilities 0 12/23/2019 Employment Answer Date Recorded Employment 0 12/23/2019 Sex and Gender Information Value Date Recorded Sex Assigned at Male 12/23/2019 2:40 PM PDT Legal Sex Male 11:58 PM PST Gender Identity Male 12/23/2019 2:15 PM PDT Sexual Orientation Straight 12/23/2019 2: 15 PM PDT Last Filed Vital Signs Vital Sign Reading Time Taken Comments Blood Pressure 110/84 01/08/2020 9:48 AM EDT Pulse 68 01/08/2020 9:48 AM EDT Temperature 37 ??C (98.6 ??F) 01/08/2020 9:48 AM EDT Respiratory Rate 16 12/23/2019 5:34 PM EDT Oxygen Saturation 98% 01/08/2020 9:48 AM EDT Inhaled Oxygen Concentration - - Weight 58.3 kg (128 lb 9.6 oz) 01/08/2020 9:48 A M EDT Height 157.5 cm (5' 2 ) 01/08/2020 9:48 AM EDT Body Mass Index 23.52 01/08/2020 9:48 AM EDT Plan of Treatment Not on file Insurance [place] MEDICAID Member Subscriber Plan / Payer (Ef fective 2019-Present) Name:Jacky Quintana Relation to Subscriber:Self Name:Jacky Quintana Payer ID:[id number] Group ID:Not on file Type:Medicaid Address: [address] [id number] Care Teams Security Management Specialist Relationship Specialty Start Date End Date Neyda Emerson APRN [address] [place] [phone] PCP - General FINISHED GOODS STOCK CLERK Primary Care 12/23/19
--- OUTSIDE RECORDS SUMMARY | 2024-12-05 10:16 | XMS_ITS | Clinical Summary ---
Author Organization [facility] it Address [address] [place] [address] Care Team Providers Care Field Service Specialist Name Role Phone Darius Dexter MD Primary Care Provider [phone] Social History Tobacco Use Types Packs/Day Years Used Date Smoking Tobacco: Never Assessed Sex and Gender Information Value Date Recorded Sex Assigned at Not on file Legal Sex Male 12:37 PM EST Gender Identity Not on file Sexual Orientation Not on file Plan of Treatment Health Maintenance Due Date Last Done Comments DTaP,Tdap,and Td Vaccines (1 - Tdap) 1998 Hepatitis B Vaccines (1 of 3 - 19+ 3-dose series) 1998 COVID-19 Vaccine (2023-2 5 season) 2024 Influenza Vaccine (#1) 2024 HIB Vaccines Aged Out No longer eligi ble based on patient's age to complete this topic HPV Vaccines Aged Out No longer eligi ble based on patient's age to complete this topic Hepatitis A Vaccines Aged Out No long er eligible based on patient's age to complete this topic IPV Vaccines Aged Out No longer eligi ble based on patient's age to complete this topic MMR Vaccines Aged Out No longer eligi ble based on patient's age to complete this topic Meningococcal ACWY Vaccine Aged Out N o longer eligible based on patient's age to complete this topic Meningococcal B Vacine Aged Out No lo nger eligible based on patient's age to complete this topic Pneumococcal Vaccine: Pediat rics (0 to 5 Years) and At-Risk Patients (6 to 64 Years) Aged Out No longer eligible b ased on patient's age to complete this topic RSV Immunization Patients Un ethel 20 months Aged Out No longer eligible b ased on patient's age to complete this topic Varicella Vaccines Aged Out No longer eligible based on patient's age to complete this topic Care Teams Field Service Specialist Relationship Specialty Start Date End Date Darius Dexter MD PCP - General Internal Medicine 08/24/21
[2024-12-05 14:03] LABS: MANUAL DIFF FLAG NO
[2024-12-05 14:07] LABS: Basophils Percent Auto 0.4 % (0-2); Eosinophils Absolute Auto 0.1 X10*3/uL (0.0-0.4); Eosinophils Percent Auto 1.6 % (0-4); Hematocrit 41.7 % (42.0-52.0); Hemoglobin 13.2 g/dl (14.0-18.0); Imm Gran Abs Auto 0.02 X10*3/uL (0.00-0.03); Imm Gran Pct Auto 0.4 % (0.0-0.4); Lymphocytes Absolute Auto 2.2 X10*3/uL (1.2-4.9); Lymphocytes Percent Auto 44.1 % (20-40); Mean Corpuscular HGB Conc 31.7 g/dl (31.0-36.0); Mean Corpuscular Hemoglobin 23.7 pg (27.0-33.0); Mean Corpuscular Volume 74.7 fL (80.0-98.0); Mean Platelet Volume 9.7 fL (9.4-12.4); Monocytes Absolute Auto 0.6 X10*3/uL (0.1-1.2); Monocytes Percent Auto 11.3 % (2-11); Neutrophils Absolute Auto 2.1 x10*3/uL (2.0-8.3); Neutrophils Percent Auto 42.2 % (45-73); Platelet Count 257 X10*3/uL (160-400); Red Blood Count 5.58 X10*6/uL (4.60-5.80); Red Cell Distribution Width 14.3 % (11.0-16.0); White Blood Count 5.1 X10*3/uL (4.8-10.8)
[2024-12-05 14:08] LABS: Appearance Urine Clear; Color Urine Yellow; Glucose Urine UA Negative (Negative); Leukocyte Esterase Urine Negative (Negative); Nitrite Urine Negative (Negative); PH 5.5 (5.0-9.0); Specific Gravity - Urine 1.025 (1.005-1.025); Urine Blood Negative (Negative); Urine Ketones Trace mg/dL (Negative); Urine Protein Negative (Neg-Trace)
[2024-12-05 14:13] LABS: Estimated Average Glucose 117 mg/dL; Hemoglobin A1C 135.9759 umol/L; Hemoglobin A1c % 5.7 % (<6.0); Total Hemoglobin (HGBA1C) 3479.2699 umol/L
[2024-12-05 14:29] LABS: Alanine Aminotransferase 39 U/L (0-40); Albumin Level 4.1 g/dL (3.5-5.0); Alkaline Phosphatase 50 U/L (39-117); Aspartate Amino Transferase 72 U/L (5-37); Bilirubin Direct 0.3 mg/dL (0.0-0.5); Bilirubin Total 0.8 mg/dL (0.0-1.0); Cholesterol 164 mg/dL (<200); HDL Cholesterol 38 mg/dL (>40); LDL Cholesterol Calculated 101 mg/dL (<100); Triglycerides 127 mg/dL (<150)
[2024-12-05 14:34] LABS: TSH reflex Free T4 2.67 uIU/mL (0.32-4.0)
[2024-12-06 20:59] LABS: HCV Log PCR <1.18 NOT DETECTED Log IU/mL (NOT DETECTED); HepC Viral Load <15 NOT DETECTED IU/mL (NOT DETECTED)
== END 2024-12-05 09:43 | disposition home or self-care (01) ==
LOC: HO.CHCLDS 09:42
PROVIDERS: Visit Provider Pediatrics
DX: Z12.11 Encounter for screening for malignant neoplasm of colon (principal); B18.2 Chronic viral hepatitis C; R73.03 Prediabetes
CPT/HCPCS: 36415; 80061; 80076; 81003; 83036; 84443; 85025; 87522